=== PATIENT | male | born 1995 | race Caucasian/White ===

== ENCOUNTER 2018-01-30 01:24 | Emergency (ER) | payer SELFPAY ==
[~2018-01-30] VITALS: Ht 177.8 cm; Wt 79.0 kg
[2018-01-30] MEDS ORDERED: DIPHENHYDRAMINE 25MG CAPSULE PO ONE (03:00)
[2018-01-30] MEDS ORDERED: IBUPROFEN 800MG TABLET PO ONE (03:00)
[2018-01-30] MEDS ORDERED: MAGNESIUM/ALUMINUM HYDROXIDE/SIMETHICONE 30ML UDC PO ONE (03:30)
[2018-01-30 06:33] VITALS: BP 133/75
== END 2018-01-30 06:33 | disposition home or self-care (01) ==
LOC: ER 01:47
DX: T65.893A Toxic effect of other specified substances, assault, initial encounter (principal); H57.8 Other specified disorders of eye and adnexa; Y92.59 Other trade areas as the place of occurrence of the external cause; R03.0 Elevated blood-pressure reading, without diagnosis of hypertension
CPT/HCPCS: 99284; J7030; Q0163